=== PATIENT | male | born 1955 | race Caucasian/White ===

== ENCOUNTER 2024-02-08 11:02 | Emergency (ER) | payer MEDICARE, OTHER, SELFPAY ==
[2024-02-08] VITALS (11 sets, daily range): BP systolic 140–187; BP diastolic 79–114; BMI 26.3
--- NOTE | 2024-02-08 11:48 | ED.GENMED ---
History of Present Illness
General
Chief Complaint: Blood Pressure Problem
Time Seen by Provider: 02/08/24 11:38
Travel History
Have you had any contact with someone who has COVID-19?: No
Do you have any symptoms of coronavirus? Fever > 100 degrees, chills, cough, shortness of breath, sore throat, loss of taste or smell, muscle aches, or headache?: No
History of Present Illness
History of Present Illness:
HPI: The patient presents with increasing blood pressure readings despite increasing doses of Coreg. He had been on amlodipine with hydrochlorothiazide in the past. He stopped the amlodipine due to lower extremity edema. He still takes
hydrochlorothiazide. He had been started on Coreg 6.25 mg twice daily and Dr. Martinez has been increasing all the way up to 25 mg twice daily which was most recently changed 3 days ago. He also had several hours of memory loss however he also states
that he had that when he was at a hospital in [place] several years ago. He also had some vague left shoulder discomfort but no chest pain
EXAM:
GENERAL: Well appearing in no distress, systolic blood pressures in the 170-180 range on multiple occasions heart rates in the 60s to 70s
HEENT: Moist oral mucosa
CARDIOVASCULAR: No murmurs, normal heart rate, regular rhythm, No chest wall tenderness
PULMONARY: No respiratory distress, breath sounds are clear and equal
ABDOMEN: Soft with no peritoneal signs, no tenderness
NEUROLOGIC: Excellent strength all extremities, no coordination deficits, no current memory deficits
PSYCHIATRIC: Appropriate mental status, normal insight and judgement
EXTREMITIES: Nontender, no edema, moves all extremities equally
SKIN: No rash, no lesions
TIME OF INITIAL ENCOUNTER: 11:45 AM
NUMBER AND COMPLEXITY OF PROBLEMS ADDRESSED AT THE ENCOUNTER
� Chronic conditions affecting care: High blood pressure, migraines, GERD, anemia
� Acute Exacerbation and/or Progression of Chronic Illness: This is an acute problem
� Differential Diagnosis includes: Hypertensive urgency, labile hypertension, CVA/transient global amnesia (symptoms have resolved)
AMOUNT AND/OR COMPLEXITY OF DATA TO BE REVIEWED AND ANALYZED
� I performed an independent evaluation of and my interpretation is:
EKG: Sinus 57, left axis deviation, nonspecific ST abnormality
CT:
X-rays:
Laboratory Studies: CBC relatively unremarkable with exception of mild anemia, chemistries unremarkable, troponin negative
Other:
� Review of other/old records: I reviewed records, I see no evidence of prior brain imaging
� Clinical information was obtained by an independent historian: I spoke to at bedside
� Prescriptions/Medications Considered but not given:
� Further testing considered but not performed:
RISK OF COMPLICATIONS AND/OR MORBIDITY OR MORTALITY OF PATIENT MANAGEMENT
� Social determinants of health affecting care: Lives at home with
� Discussion with other providers: Discussed with Dr. La at 1:10 PM she recommends Procardia twice daily indicating that there is much less incidence of edema
� Escalation of care including admission/observation vs risk of discharge considered: The patient's initial blood pressure systolics were in the 180s range. I did give a dose of IV hydralazine which dropped pressure into the
150s. His heart rate has been in the 60s. He has a normal neurologic examination but given the concerns for memory loss in the setting of high blood pressure, CT imaging is obtained of the brain was obtained and is unremarkable.
Past History
Past History
ED Past Medical History: Other (back pain)
ED Past Surgical History: Other (back pain.)
Phy Exam
Physical Exam
Physical Exam:
See HPI
Course
Orders/Labs/Results
Orders:
Orders
02/08/24 11:18
ECG [Electrocardiogram (*1)] Urgent
Reason for Study: Chest Pain
EKG- Treatment ONCE
02/08/24 11:47
CT Head W/o Iv Contrast Urgent
Comment:
Reason For Exam: global amnesia resolved severe high BP
02/08/24 11:48
HydrALAZINE [Apresoline] 10 mg IV NOW STA
02/08/24 12:05
Basic Metabolic Panel Urgent
Complete Blood Count/With Diff Urgent
Troponin I Urgent
Abnormal Lab Results
02/08/24
12:05
RBC 4.49 L 10^6/uL
(4.70-6.10)
Hgb 12.2 L g/dL
(13.0-18.0)
Hct 36.9 L %
(39.0-52.0)
RDW 15.0 H %
(11.5-14.5)
Absolute Neuts (auto) 7.2 H 10^3/uL
(1.4-6.5)
Absolute Lymphs (auto) 1.0 L 10^3/uL
(1.2-3.4)
Neutrophils % 80.7 H %
(42.2-75.2)
Lymphocytes % 11.0 L %
(20.5-51.1)
Glucose 107 H mg/dl
(70-99)
02/08/24 12:05
02/08/24 12:05
Vital Signs
Initial and Last Documented VS:
Initial Vital Signs
Temp Pulse Resp BP Pulse Ox
98.1 F 71 18 182/95 99
02/08/24 11:15 02/08/24 11:15 02/08/24 11:15 02/08/24 11:15 02/08/24 11:15
Last Documented Vital Signs
Temp Pulse Resp BP Pulse Ox
98.1 F 64 12 150/80 98
02/08/24 11:15 02/08/24 12:47 02/08/24 12:47 02/08/24 12:40 02/08/24 12:47
*Critical Care Note
Total Time (30-74mins, 75-104mins- exclusive of procedures): Not Applicable
ED Attending Note
-
Portions of this chart may have been created with voice recognition software.� Occasional wrong word or��sound alike� substitutions may have occurred due to the inherent limitations of voice recognition software.
Discharge Plan
Departure
Patient Disposition: Home (Routine Discharge)
Date of Disposition: 02/08/24
Time of Disposition: 13:31
Patient with high blood pressure during this ER visit?: Yes
Discharge Problem:
Labile hypertension
Instructions: BLOOD PRESSURE
Prescriptions:
New
nifedipine [Procardia XL] 30 mg tablet extended release 24hr
30 mg PO DAILY Qty: 60 0RF
No Action
famotidine 40 MG tablet
40 mg PO Q12H
sennosides [senna] 1 TABLET tablet
2 tab PO BID 0RF
acetaminophen [Tylenol Extra Strength] 500 MG tablet
1,000 mg PO QID 0RF
Rx Instructions:
standing order
baclofen 10 MG tablet
10 mg PO TID Qty: 30 0RF
docusate sodium 100 MG capsule
100 mg PO BID 0RF
hydromorphone 4 MG tablet
4 mg PO Q4HPRN PRN (Reason: moderate-severe pain) Qty: 35 0RF
Rx Instructions:
dx lami
ongoing therapy
methylprednisolone [Medrol (Fabian)] 4 MG tablets,dose pack
4 tab PO . DIRECT Qty: 1 0RF
Rx Instructions:
start 10/17/19
amlodipine 5 MG tablet
5 mg PO DAILY Qty: 0 0RF
Rx Instructions:
hold systolic blood pressure <125
zolpidem 10 MG tablet
5 mg PO HS Qty: 0 0RF
Rx Instructions:
1/2 tab
valsartan-hydrochlorothiazide 1 EACH tablet
1 ea PO DAILY Qty: 0 0RF
Rx Instructions:
hold systolic blood pressure <130
cephalexin 500 MG capsule
500 mg PO QID Qty: 20 0RF
amoxicillin-pot clavulanate 875-125 mg tablet
1 tab PO BID Qty: 20 0RF
tamsulosin [Flomax] 0.4 mg capsule
0.4 mg PO DAILY Qty: 7 0RF
Referrals:
Sundeep Murray MD [Family Provider] -
Activity Restrictions/Additional Instructions:
Your blood pressure readings here were as high as the 180s. Basic blood work including cardiac blood work is unremarkable. CAT scan of the brain shows no abnormality. We did give a one-time dose of IV hydralazine [address] La, .
Juan's associate, recommends Procardia�I sent this to your pharmacy. Take this medication in addition to the medications that you are already on.
Interventions
Interventions:
*Risk Screen - Suicide Last Done: 02/08/24 12:09
*General Assessment Last Done: 02/08/24 12:08
*Neglect/Abuse Screening Last Done: 02/08/24 12:09
*ED COVID-19 Vaccine History Last Done: 02/08/24 11:15
ED- Cardiac Assessment Last Done: 02/08/24 12:10
ED- Neurological Assessment Last Done: 02/08/24 12:10
ED- Pulmonary Assessment Last Done: 02/08/24 12:10
Discharge Date and Time
Print Language: BURKINAN
[2024-02-08] MEDS: APRESOLINE 10 MG IV (12:02)
[2024-02-08 12:18] LABS: % Basophils 0.6 % (0-2); % Eosinophils 3.3 % (0-6); % Immature Granulocytes 0.2 % (0-0.5); % Monocytes 4.2 % (1.7-9.3); % Neutrophils 80.7 % (42.2-75.2); Absolute Basophils 0.1 10^3/uL (0-0.2); Absolute Eosinophils 0.3 10^3/uL (0-0.7); Absolute Monocytes 0.4 10^3/uL (0.1-0.6); Absolute Neutrophils 7.2 10^3/uL (1.4-6.5); Hematocrit 36.9 % (39.0-52.0); Hemoglobin 12.2 g/dL (13.0-18.0); Mean Corp Hgb Conc. 33.1 g/dL (33.0-37.0); Mean Corpuscular Hgb 27.2 pg (27.0-31.0); Mean Corpuscular Volume 82.2 fL (80.0-94.0); Mean Platelet Volume 9.3 fL (7.4-10.4); Nucleated Red Blood Cells % 0 % (-); Platelet Count 316 10^3/uL (130-400); Red Blood Cell Count 4.49 10^6/uL (4.70-6.10)
[2024-02-08 12:32] LABS: Blood Urea Nitrogen 19 mg/dl (9-20); Calcium 9.9 mg/dl (8.4-10.2); Carbon Dioxide 29 mmol/L (22-30); Chloride 103 mmol/L (98-107); Estimated Creatinine Clearance 73 ml/min; Glucose 107 mg/dl (70-99); Sodium 139 mmol/L (135-145); eGFR > 60.00
[2024-02-08 12:44] LABS: Troponin I < 0.012 ng/ml
== END 2024-02-08 14:10 | disposition home or self-care (01) ==
LOC: EMR 11:02
PROVIDERS: EMERGENCY PHYSICIAN Emergency Medicine; FAMILY PHYSICIAN Internal Medicine
DX: I10 Essential (primary) hypertension (principal)
CPT/HCPCS: 99285; 96374; 70450; 80048; 84484; 85025; 93005

== ENCOUNTER → 2024-08-19 09:45 | Outpatient (REF) | payer MEDICARE, OTHER, SELFPAY | LOC: HWRAD 09:45 | PROVIDERS: ATTENDING PHYSICIAN Internal Medicine; FAMILY PHYSICIAN Internal Medicine | DX: R10.31 Right lower quadrant pain (principal) | CPT/HCPCS: 76705 ==

== ENCOUNTER → 2024-10-22 16:19 | Outpatient (REF) | payer MEDICARE, OTHER, SELFPAY | LOC: RAD 16:19 | PROVIDERS: ATTENDING PHYSICIAN Specialist; FAMILY PHYSICIAN Internal Medicine | DX: R31.0 Gross hematuria (principal) | CPT/HCPCS: 74178; Q9967 ==

== ENCOUNTER → 2025-06-24 12:25 | Outpatient (REF) | payer MEDICARE, OTHER, SELFPAY | LOC: RAD 12:25 | PROVIDERS: ATTENDING PHYSICIAN Specialist; FAMILY PHYSICIAN Internal Medicine; REFERRING PHYSICIAN Internal Medicine Rheumatology | DX: R31.0 Gross hematuria (principal); N20.0 Calculus of kidney; M54.2 Cervicalgia; M54.50 Low back pain, unspecified | CPT/HCPCS: 72052; 74176 ==

== ENCOUNTER → 2025-07-22 07:50 | Outpatient (REF) | payer MEDICARE, OTHER, SELFPAY ==
[2025-07-22 08:56] LABS: Hematocrit 36.1 % (39.0-52.0); Hemoglobin 11.9 g/dL (13.0-18.0); Mean Corp Hgb Conc. 33.0 g/dL (33.0-37.0); Mean Corpuscular Volume 94.0 fL (80.0-94.0); Platelet Count 248 10^3/uL (130-400); Red Cell Dist. Width 13.4 % (11.5-14.5)
[2025-07-22 09:50] LABS: Blood Urea Nitrogen 27 mg/dl (9-20); Calcium 9.7 mg/dl (8.4-10.2); Carbon Dioxide 31 mmol/L (22-30); Chloride 104 mmol/L (98-107); Glucose 127 mg/dl (70-99); Potassium 3.4 mmol/L (3.5-5.1); Sodium 139 mmol/L (135-145); eGFR > 60.00
== END ==
LOC: SDSPAT 07:50
PROVIDERS: ATTENDING PHYSICIAN Specialist; FAMILY PHYSICIAN Internal Medicine
DX: Z01.818 Encounter for other preprocedural examination (principal)
CPT/HCPCS: 80048; 85027; 93005

== ENCOUNTER 2025-07-30 06:40 | Day surgery (SDC) | payer MEDICARE, OTHER, SELFPAY ==
[2025-07-22 13:58] VITALS: BMI 25.3
[2025-07-30] VITALS (9 sets, daily range): BP systolic 150–185; BP diastolic 89–101; BMI 25.3
[2025-07-30] MEDS: NORMOSOL-R/PLASMALYTE-A 1000 IV (11:46)
== END 2025-07-30 16:25 | disposition home or self-care (01) ==
LOC: SDS 06:40
PROVIDERS: ATTENDING PHYSICIAN Specialist; FAMILY PHYSICIAN Internal Medicine
DX: N20.1 Calculus of ureter (principal)
CPT/HCPCS: 52356; 74018; 76000; 82365; C1894; C2617